=== PATIENT | female | born 1990 | race Caucasian/White ===

== ENCOUNTER → 2016-05-09 | Outpatient (CLI) | payer MEDICAID, OTHER ==
[~2016-05-09] MED LIST: ULTR50TA5 PO
== END ==
LOC: CDED 14:46
PROVIDERS: ATTEND Obstetrics & Gynecology
DX: O24.419 Gestational diabetes mellitus in pregnancy, unspecified control (principal)
CPT/HCPCS: 97802

== ENCOUNTER 2016-07-30 21:08 | Inpatient (IN) | payer MEDICAID ==
[2016-07-30 21:45] VITALS: TEMP 98.5
[2016-07-30] MEDS ORDERED: LIDOCAINE HCL 1% 50 ML VIAL INFIL PRN (22:00)
[2016-07-30] MEDS ORDERED: OXYTOCIN 30 UNITS 500ML PREMIX IV ONE (22:00)
[2016-07-30] MEDS ORDERED: NS 1000 ML OTHER PRN (22:00)
[2016-07-30] MEDS ORDERED: MINERAL OIL 10 ML VIAL TOPICAL PRN (22:00)
[2016-07-30] MEDS ORDERED: DINOPROSTONE 10 MG INSERT-LEAVE FOR 12 HOURS VAGINAL ONE (22:00)
[2016-07-30 22:15] VITALS: RESP 18
[2016-07-30] MEDS ORDERED: NS 1000 ML IV PRN (22:15)
[2016-07-30] MEDS ORDERED: ONDANSETRON HCL 4 MG/2 ML VIAL IV PRN (22:15)
[2016-07-30] MEDS ORDERED: NS 500 ML BOLUS IV PRN (22:15)
[2016-07-30] MEDS ORDERED: CITRIC ACID-SODIUM CITRATE LIQ 30 ML UDC PO SCH (22:15)
[2016-07-30] MEDS ORDERED: LIDOCAINE HCL 1% 50 ML VIAL I-DERMAL PRN (22:15)
[2016-07-30] MEDS ORDERED: LACTATED RINGER'S 1000 ML BOLUS IV PRN (22:15)
[2016-07-30 22:57] LABS: AUTOMATED NEUTROPHIL # 4.9 TH/MM3 (1.8-7.7); BASOPHIL % 0.2 % (0.0-2.0); EOSINOPHIL # 0.1 TH/MM3 (0-0.4); EOSINOPHIL % 0.8 % (0.0-4.0); HEMATOCRIT 34.6 % (35.0-46.0); HEMO FLAGS DIFF FINAL; LYMPH % 20.6 % (9.0-44.0); LYMPHOCYTE # 1.5 TH/MM3 (1.0-4.8); MEAN CELL VOLUME 86.4 FL (80.0-100.0); MEAN CORPUSCULAR HEMOGLOBIN 30.5 PG (27.0-34.0); MEAN CORPUSCULAR HGB CONC 35.3 % (32.0-36.0); MONO % 8.5 % (0.0-8.0); NEUT % 69.9 % (16.0-70.0); PLATELET COUNT 147 TH/MM3 (150-450); RED BLOOD COUNT 4.01 MIL/MM3 (4.00-5.30); RED CELL DISTRIBUTION WIDTH 13.5 % (11.6-17.2); WHITE BLOOD COUNT 7.1 TH/MM3 (4.0-11.0)
[2016-07-30 23:15] VITALS: RESP 18
[2016-07-30 23:30] LABS: BACTERIA, URINE RARE /hpf; BLOOD, URINE MOD (NEG); GLUCOSE,URINE NEG (NEG); KETONE, URINE NEG (NEG); MUCUS URINE FEW /lpf (OCC); NITRITE,URINE NEG (NEG); SQUAMOUS EPITHELIAL CELL URINE 9 /hpf (0-5); TRANSITIONAL EPI CELLS, URINE <1 /hpf; URINE COLOR YELLOW (YELLW/STRAW)
[2016-07-30 23:31] LABS: COMMENT (UR) CULTURE INDICATED; CULTURE IF INDICATED CULTURE INDICATED
[2016-07-31] VITALS (154 sets, daily range): BP systolic 104–134; BP diastolic 58–81; PULSE 76–106; RESP 16–20; TEMP 97.8–98.7; O2SAT 96–100
--- NOTE | 2016-07-31 07:36 | PD.LABORPN ---
Subjective Subjective feeling comfortable, mild cramping, not consistent; pain 2/10 low pelvis. Objective Vital Signs Vital Signs Date Time Temp Pulse Resp B/P Pulse Ox O2 Delivery O2 Flow Rate FiO2 07/31/16 07:28 80 121/74 07/31/16 07:26 97.9 18 07/31/16 06:36 18 07/31/16 06:00 18 07/31/16 03:45 76 132/73 07/31/16 03:45 98.6 07/31/16 03:45 18 07/31/16 02:30 18 07/31/16 00:30 18 Objective Pelvic Exam: SVE deferred, cervidil placed 10P last evening, to remain x 12h Membranes: [intact] Uterine Contractions: [irritability q6 min] FHT's: Category: [I] Baseline: [130s] Reactive: [y] Variability: [y] Decels: [n] Assessment/Plan Problem List: (1) Decreased movement affecting management of in third trimester (2) 40 weeks gestation of (3) Gestational diabetes mellitus (GDM) affecting Assessment and Plan 26 yo G1 with EDC 07/29/[address] Hugo for IOL due to decreased FM, GDM, past due 1) IOL: cervidil placed overnight at 10p, will plan removal at 10A today; pt very painful with vaginal exams, will have to evaluate ability to place addt'l induction medications; pt aware likely >24h induction/labor due to unfavorable Lopez score 2) GDM: diet controlled; while not yet in active labor will allow diabetic diet & plan fasting & 2h PP BS checks; q4h checks once on clears 3) status: vertex, female, EFW >8#, Cat I tracing currently Stephy Jordan MD July 31, 2016 07:36
--- NOTE | 2016-07-31 09:18 | HHI.HP ---
History & Physical H&P H&P, late entry HPI Chief Complaint cramping and decreased movement, desire iol Date Seen: July 30, 2016 Time Seen: 15:00 Travel History International Travel<30 Days: No Contact w/Intl Traveler<30Days: No Known Affected Area: No History of Present Illness HPI Pt is a 26 y/o G1 with IUP at 40.2 wks by first trimester presents with c/o decreased FM and cramping. She was evaluated in triage, July 30 for cramping and decreased movement. she had reassuring tracing at that time and was not found to be in labor. Pt denies contractions, vb, lof. +FM, but decreased . PNC c/b GDM with good control on diet, chronic back pain, obesity. Pt was scheduled for iol last week; but after appt discussed with and declined admission. Desire induction now. 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[place], has been here for 2 years Allergies-Medications Allergies-Medications (Allergen,Severity, Reaction): Coded Allergies: No Known Allergies (Unverified , 07/30/16) Narrative Medication PNV ROS Review of Systems General / Constitutional: No: Fever, Weight Gain, Weight Loss, Chills, Other Eyes: No: Diploplia, Blurred Vision, Visual changes, Pain, Photophobia, Other HENT: No: Headaches, Vertigo, Dental Difficulties, Lightheadedness, Other Cardiovascular: No: Irregular Rhythm, Chest Pain or Discomfort, Palpitations, Tachycardia, Syncope, Varicosities, Edema, Cyanosis, Other Respiratory: No: Cough, Short of Breath, Wheezing, Other Gastrointestinal: No: Nausea, Vomiting, Diarrhea, Abdominal Pain, Hematemesis, Hematochezia, Constipation, Changes in Bowel Habits, Indigestion, Loss of Appetite, Other Genitourinary: No: Urgency, Frequency, Dysuria, Nocturia, Hematuria, Decreased Urinary Output, Oliguria, Hesitancy, Dribbling, Incontinence, Pelvic Pain, Dyspareunia, Discharge, Menorrhagia, Vaginal Bleeding, Other Musculoskeletal: No: Limited ROM, Weakness, Cramping, Edema, Pain, Other Skin: No Rash, No Itching, No Dryness, No Lumps, No Change in Pigmentation, No Change in Nails, No Alopecia, No Lesions, No Breast Lumps, No Breast Tenderness , No Breast Swelling, No Other Neurologic: No: Weakness, Dizziness, Syncope, Focal Abnormalities, Coordination Problem, Headache, Slurred Speech, Seizures, Other Psychiatric: No: Anxiety, Depression, Suicidal Ideations, Disorder of Thought, Mood Disorder, Substance Abuse, Homicidal Ideation, Other Endocrine: No: Heat Intolerance, Cold Intolerance, Polydipsia, Polyuria, Other Hematologic/Lymphatic: No Easy Bruising, No Lymph Node Enlargement, No Other Physical Exam Physical Exam Vital Signs Date Time Temp Pulse Resp B/P Pulse Ox O2 Delivery O2 Flow Rate FiO2 07/31/16 08:30 83 99 07/31/16 08:25 80 99 07/31/16 08:20 83 99 07/31/16 08:15 91 99 07/31/16 08:10 82 99 07/31/16 07:28 80 121/74 07/31/16 07:26 97.9 18 07/31/16 06:36 18 07/31/16 06:00 18 07/31/16 03:45 76 132/73 07/31/16 03:45 98.6 07/31/16 03:45 18 07/31/16 02:30 18 07/31/16 00:30 18 07/30/16 23:15 18 07/30/16 22:15 18 07/30/16 21:45 98.5 Narrative GENERAL: Well-nourished, well-developed patient. SKIN: Warm and dry. HEAD: Normocephalic and atraumatic. EYES: No scleral icterus. No injection or drainage. ENT: No nasal drainage noted. Mucous membranes pink. Airway patent. NECK: Supple, trachea midline. No JVD. CARDIOVASCULAR: Regular rate and rhythm without murmurs, gallops, or rubs. RESPIRATORY: Breath sounds equal bilaterally. No accessory muscle use. ABDOMEN/GI: Abdomen soft, non-tender, bowel sounds present, no rebound, no guarding Gravid GENITOURINARY: External Genitalia: intact and normal in appearance BUS glands: [wnl] Cervix: posterior Dilatation: 1 Effacement: 50 Station: -3 Presentation: [facility] Membranes: intact Uterine Contractions: rare, patient not feeling FHT's: Category: 1 Baseline: 150s Reactive: yes Variability: mod Decels: no EXTREMITIES: No cyanosis or edema. BACK: Nontender without obvious deformity. No CVA tenderness. NEUROLOGICAL: Awake and alert. Motor and sensory grossly within normal limits. Five out of 5 muscle strength in all muscle groups. Normal speech. A/P: 26 yo G1 with iup at 40w2d admitted last night for iol for term with decreased fm 1) IOL- started last night with cervidil, inserted at 10;30pm; will keep in for 12 hours. Pt aware that induction can be a long process, 24 to 36 hours long, and may need a cd if labor progression is not normal. 2) GDM- diet controlled 3) Elevated bmi- last growht u/s at 35 wk, efw 66%ile, 5 lb 15 oz 4) Fetus cephalic approx 8-8.5 lb Marei Hugo MD July 31, 2016 09:18
[2016-07-31] MEDS ORDERED: PILL SPLITTER OTHER PRN (10:45)
[2016-07-31] MEDS: MISOPROSTOL 100 MCG TAB PO SCH ×2 (10:46→14:42)
[2016-07-31] MEDS: LACTATED RINGER'S 1000 ML IV SCH ×3 (14:15→20:53)
[2016-07-31] MEDS ORDERED: OXYTOCIN 30 UNITS-500ML PREMIX 500 ML IV SCH (21:00)
[2016-08-01] VITALS (106 sets, daily range): BP systolic 94–145; BP diastolic 47–92; PULSE 67–99; RESP 16–20; TEMP 97.6–98.5; O2SAT 96–98
[2016-08-01] MEDS: LACTATED RINGER'S 1000 ML IV SCH (01:34)
[2016-08-01] MEDS ORDERED: fentaNYL 2MCG-BUPIV 0.125% INJ 100 ML ONE (08:15)
[2016-08-01] MEDS ORDERED: ePHEDrine/NS 25 MG/5 ML SYR ONE (08:15)
[2016-08-01] MEDS ORDERED: ePHEDrine/NS 25 MG/5 ML SYR IV PRN (10:30)
[2016-08-01] MEDS ORDERED: DO NOT ADMINISTER ANTICOAGULANTS PRN (10:30)
[2016-08-01] MEDS ORDERED: NO SYSTEM NARCOTICS PRN (10:30)
--- NOTE | 2016-08-01 11:45 | PD.LABORPN ---
Subjective Subjective Patient is comfortable with epidural, pitocin is at 18 units, cervix 70/4+/-3 Objective Vital Signs Vital Signs Date Time Temp Pulse Resp B/P Pulse Ox O2 Delivery O2 Flow Rate FiO2 08/01/16 11:30 68 98/56 08/01/16 11:10 97.9 68 08/01/16 11:05 79 08/01/16 11:03 18 08/01/16 11:00 75 116/75 08/01/16 11:00 80 08/01/16 10:55 74 08/01/16 10:50 75 08/01/16 10:45 72 116/67 08/01/16 10:45 74 08/01/16 10:40 75 08/01/16 10:35 73 08/01/16 10:30 74 08/01/16 10:30 70 109/66 08/01/16 10:25 81 08/01/16 10:20 73 08/01/16 10:15 72 08/01/16 10:15 71 115/69 08/01/16 10:10 72 08/01/16 10:05 74 08/01/16 10:00 75 111/71 08/01/16 10:00 72 08/01/16 09:55 71 08/01/16 09:50 72 08/01/16 09:46 77 113/65 08/01/16 09:45 74 08/01/16 09:35 76 08/01/16 09:30 76 119/71 08/01/16 09:30 74 08/01/16 09:25 81 08/01/16 09:20 74 08/01/16 09:20 80 111/67 08/01/16 09:17 18 08/01/16 09:15 90 08/01/16 09:15 75 99/71 08/01/16 09:10 90 08/01/16 09:10 88 108/70 08/01/16 09:05 83 08/01/16 09:05 92 119/70 08/01/16 09:00 88 08/01/16 09:00 89 18 121/77 08/01/16 08:55 81 08/01/16 08:55 74 112/74 08/01/16 08:52 77 128/73 08/01/16 08:50 83 08/01/16 08:48 88 135/72 08/01/16 08:45 99 08/01/16 08:45 97 144/92 08/01/16 08:40 83 08/01/16 08:38 94 145/90 08/01/16 08:35 96 08/01/16 08:23 72 115/47 08/01/16 07:45 18 08/01/16 07:45 67 128/71 08/01/16 07:45 97.7 08/01/16 06:43 20 08/01/16 06:39 76 130/80 08/01/16 06:00 98.4 08/01/16 05:47 20 08/01/16 05:46 76 120/68 08/01/16 03:54 16 Objective Pelvic Exam: Cervix: SOFT Dilatation: 4-5 Effacement: 70 Station: -3 Presentation: [facility] Membranes: AROM Uterine Contractions: q 3 FHT's: Category: 1 Baseline: 140 Reactive: [-] Variability: MODERATE Decels: NO Assessment/Plan Problem List: (1) Decreased movement affecting management of in third trimester (2) 40 weeks gestation of (3) Gestational diabetes mellitus (GDM) affecting Assessment and Plan IUPC placed, minimal change, concerning for arrest of decent, remains at -3. will increase pitocin to 20 Max., FHR CAT 1 Preet Velasquez MD August 01, 2016 11:45
[2016-08-01] MEDS: fentaNYL 2MCG-BUPIV 0.125% 100 ML EPIDURAL SCH ×2 (13:49→18:57)
[2016-08-01] MEDS ORDERED: ceFAZolin 2 GM PREMIX 50 ML IV SCH (15:30)
[2016-08-01] MEDS ORDERED: CITRIC ACID-SODIUM CITRATE LIQ 30 ML UDC PO SCH (15:30)
[2016-08-01] MEDS ORDERED: LACTATED RINGER'S 1000 ML IV ONE (15:30)
[2016-08-01] MEDS ORDERED: LACTATED RINGER'S 1000 ML IV SCH (16:00)
[2016-08-01] MEDS ORDERED: OXYTOCIN 10 UNIT/ML AMP ONE (16:57)
[2016-08-01] MEDS ORDERED: ACETAMINOPHEN 1000 MG/100 ML VIAL IV ONE (17:47)
[2016-08-01] MEDS ORDERED: EPIDURAL-DIPHENHYDRAMINE HCL 50 MG CAP PO PRN (18:06)
[2016-08-01] MEDS ORDERED: EPIDURAL-NO SYSTEMIC NARCOTICS PRN (18:06)
[2016-08-01] MEDS ORDERED: EPIDURAL-DO NOT ADMINISTER ANTICOAGULANTS PRN (18:06)
[2016-08-01] MEDS ORDERED: EPIDURAL-NALOXONE HCL 0.4 MG/ML AMP IV PRN (18:06)
[2016-08-01] MEDS ORDERED: EPIDURAL-DIPHENHYDRAMINE HCL 50 MG/ML VIAL IV PUSH PRN (18:06)
--- NOTE | 2016-08-01 18:25 | PD.OB.DELI ---
Procedure Note Section Procedure Performed by Preet Velasquez Procedure: Primary Low Transverse Sec Indication for delivery: malposition Informed consent obtained: For anesthesia, For procedure Confirmed correct: Patient, Procedure, Site, Time-out taken Anesthesia: Epidural Medication prior to procedure: As documented in eMAR Monitoring during procedure: Blood pressure monitoring, awake overnight monitor, doppler, Pulse oximetry Urinary catheter: Inserted using sterile technique, To dependent drainage Sterile preparation: Duraprep, With 2% chlorexidine (Hibiclens), With drapes to expose affected area Position: Supine with wedge to right side, Supine with safety belt applied Operative Features Skin Incision: Pfannenstiel Uterine Incision: Low transverse w/knife / scissors Membranes Ruptured: Previously Presentation: Occiput posterior Delivery of : Assisted (kiwi vacuum x1 pull,no pop off) Infant: Female One Minute : 8 Five Minute : 9 Weight: 8 # 11oz Status of : Viable, Cord blood, Nursery present Placenta delivered: Intact Medications: Antibiotics, Oxytocin Estimated blood loss: 650cc Procedure tolerated: Well Maternal Condition: Stable Condition: Stable Preet Velasquez MD August 01, 2016 18:25
[2016-08-01] MEDS ORDERED: MORPHINE SULFATE PF 5 MG/10 ML VIAL ONE (18:27)
[2016-08-01] MEDS ORDERED: ACETAMINOPHEN 325 MG TAB PO PRN (18:30)
[2016-08-01] MEDS ORDERED: SIMETHICONE 80 MG CHEWABLE TAB PO PRN (18:30)
[2016-08-01] MEDS ORDERED: OXYTOCIN 30 UNITS-500ML PREMIX 500 ML IV ONE (18:30)
[2016-08-01] MEDS ORDERED: ONDANSETRON HCL 4 MG/2 ML VIAL IV PUSH PRN (18:30)
[2016-08-01] MEDS ORDERED: KETOROLAC TROMETHAMINE 60 MG/2 ML (IM) VIAL IM PRN (18:30)
[2016-08-01] MEDS ORDERED: oxyCODONE/ACETAMINOPHEN 5 MG/325 MG TAB PO PRN (18:30)
[2016-08-01] MEDS ORDERED: DOCUSATE SODIUM 50 MG/SENNA 8.6 MG TAB PO PRN (18:30)
[2016-08-01] MEDS ORDERED: SODIUM CHLORIDE 0.9% FLUSH 10 ML FLUSH IV FLUSH PRN (18:30)
[2016-08-01] MEDS ORDERED: SODIUM CHLORIDE 0.9% FLUSH 10 ML FLUSH IV FLUSH SCH (21:00)
[2016-08-01] MEDS ORDERED: LACTATED RINGER'S 1000 ML INJ 1,000 ML IV SCH (23:21)
[2016-08-02 04:00] VITALS: BP 118/69; PULSE 16; PULSE 78; TEMP 98.3; O2SAT 98
[2016-08-02 04:30] VITALS: RESP 16
[2016-08-02] MEDS ORDERED: OXYTOCIN 30 UNITS-500ML PREMIX 500 ML IV PRN (04:30)
[2016-08-02] MEDS: IBUPROFEN 600 MG TAB PO PRN (06:36)
--- NOTE | 2016-08-02 07:34 | MP ---
cc: PREET GARCIA DATE OF SURGERY 08/01/2016 PREOPERATIVE DIAGNOSIS 40-week intrauterine gestation with failure to progress, arrest of descent, history of gestational diabetes. PROCEDURE Primary low transverse section delivery of viable female infant. POSTOPERATIVE DIAGNOSIS 40-week intrauterine gestation with failure to progress, arrest of descent, history of gestational diabetes. SURGEON Preet Garcia MD ANESTHESIA Epidural ESTIMATED BLOOD LOSS 650 cc. DRAINS Rosenbaum to gravity OPERATIVE FINDINGS Female was delivered with the aid of a kiwi extractor x one pull. The baby was a left occiput posterior nuchal cord x1 which was loose, clear fluid, intact placenta, three-vessel cord. 's were a 8 at one minute, 9 at five. INDICATIONS FOR PROCEDURE The patient was brought in for elective induction due to concerns for well-being. The patient progressed after artificial rupture of membranes to 5 cm and despite adequate uterine contractions with Pitocin augmentation, the patient failed to progress beyond 5 cm at -3 station. A section was elected. The patient received Ancef 2 grams prophylactically. PROCEDURE The patient was taken to the operating room in stable condition, underwent reinforcement of her epidural with good result. She was prepped and draped. The Rosenbaum was previously inserted by sterile technique and she had sequential's placed on the lower extremities for VTE prophylaxis. After she was prepped and draped, a time-out was conducted agreed by all present in the room. The patient had excellent pain control with her anesthesia. A Pfannenstiel incision was used. It was carried just above the pubic symphysis in a slightly elliptical fashion, carried through the skin down through the subcutaneous layer to identify the fascia which was scored in the midline and extended laterally by sharp dissection cauterizing any active bleeding along the way with the Bovie. The rectus was dissected from the rectus muscle. The rectus muscle was in the midline. The peritoneum was identified and opened sharply. A bladder blade was placed over the pubic symphysis. A transverse incision was made in the lower uterine segment with clear fluid. The was delivered with the aid of a Kiwi after bringing the vertex through the incision for manipulation. The nuchal cord was easily reduced and then the infant was delivered in total with good tone and cry. Cord bloods obtained for typing. The placenta was removed without complication. The had been passed off to the nursery staff present. The uterus was explored. There is no retained tissue. It was then closed with a double layer first layer was a running locking suture of 0 Monocryl followed by a second imbricating suture of 0 Monocryl with good result. The uterus was firm. Hemostasis was confirmed. The anatomy was examined and normal. The pelvis was then irrigated and any active bleeding was cauterized and the free fluid and blood was removed without difficulty. Full count was made and correct. The peritoneal layer was then closed with a running suture of 2-0 Monocryl followed by reapproximation of the muscle bellies with a loose interrupted suture of 2-0 Monocryl. The fascia was then closed with 0 Vicryl in a simple running fashion with good result. Subcutaneous layer was irrigated. No active bleeding was noted. The subcutaneous space was reapproximated with a running stitch of 2-0 Monocryl followed by the use of yaz on the skin. Dressing was applied. The final count was correct. The patient was stable. Infant was doing well in the regular nursery. MD MARCELO Worthy/CLAIRE /6:29 PM /7:21 AM
[2016-08-02 08:10] VITALS: BP 111/72; PULSE 68; RESP 18; TEMP 97.9
--- NOTE | 2016-08-02 08:23 | HHI.OB ---
Subjective Post Operative Day: 1 Remarks gould just removed, pain controlled on meds. Passing flatus Objective Vitals/I&O Vital Signs Date Time Temp Pulse Resp B/P Pulse Ox O2 Delivery O2 Flow Rate FiO2 08/02/16 04:30 16 08/02/16 04:00 98.3 16 118/69 98 08/02/16 04:00 78 08/01/16 23:30 98.5 68 18 122/74 08/01/16 20:15 102/60 08/01/16 20:15 98.1 76 18 08/01/16 20:10 98.1 08/01/16 20:10 76 18 102/60 08/01/16 19:30 74 18 104/61 08/01/16 19:30 97 08/01/16 19:18 18 96 08/01/16 19:18 74 98/53 08/01/16 19:10 18 96 08/01/16 19:10 73 107/56 08/01/16 18:45 104/55 08/01/16 18:45 81 18 98 08/01/16 18:30 97.9 80 18 94/53 98 08/01/16 17:00 84 124/78 08/01/16 16:42 18 08/01/16 16:30 78 132/74 08/01/16 16:00 81 128/74 08/01/16 15:45 98.1 08/01/16 15:42 18 08/01/16 15:30 86 132/80 08/01/16 15:20 78 08/01/16 15:15 79 08/01/16 15:00 79 08/01/16 15:00 79 133/74 08/01/16 14:45 18 08/01/16 14:40 77 08/01/16 14:35 72 08/01/16 14:30 76 08/01/16 14:30 72 118/59 08/01/16 14:11 82 108/60 08/01/16 14:10 75 08/01/16 14:05 70 08/01/16 14:00 75 08/01/16 14:00 74 114/57 08/01/16 13:45 97.6 08/01/16 13:45 17 08/01/16 13:40 84 08/01/16 13:35 85 08/01/16 13:30 86 08/01/16 13:30 84 129/86 08/01/16 13:25 84 08/01/16 13:24 98.1 08/01/16 13:20 81 08/01/16 13:18 18 08/01/16 13:15 84 08/01/16 13:10 81 08/01/16 13:05 81 08/01/16 13:00 82 08/01/16 13:00 84 121/79 08/01/16 12:31 18 08/01/16 12:30 88 125/77 08/01/16 12:30 82 08/01/16 12:25 81 08/01/16 12:20 82 08/01/16 12:15 82 08/01/16 12:10 80 08/01/16 12:05 71 08/01/16 12:00 80 118/74 08/01/16 12:00 76 08/01/16 11:55 77 08/01/16 11:50 75 08/01/16 11:45 78 08/01/16 11:42 18 08/01/16 11:40 77 116/76 08/01/16 11:40 72 08/01/16 11:35 87 08/01/16 11:30 72 08/01/16 11:30 68 98/56 08/01/16 11:25 67 08/01/16 11:20 69 08/01/16 11:15 69 08/01/16 11:10 97.9 68 08/01/16 11:05 79 08/01/16 11:03 18 08/01/16 11:00 75 116/75 08/01/16 11:00 80 08/01/16 10:55 74 08/01/16 10:50 75 08/01/16 10:45 72 116/67 08/01/16 10:45 74 08/01/16 10:40 75 08/01/16 10:35 73 08/01/16 10:30 74 08/01/16 10:30 70 109/66 08/01/16 10:25 81 08/01/16 10:20 73 08/01/16 10:15 72 08/01/16 10:15 71 115/69 08/01/16 10:10 72 08/01/16 10:05 74 08/01/16 10:00 75 111/71 08/01/16 10:00 72 08/01/16 09:55 71 08/01/16 09:50 72 08/01/16 09:46 77 113/65 08/01/16 09:45 74 08/01/16 09:35 76 08/01/16 09:30 76 119/71 08/01/16 09:30 74 08/01/16 09:25 81 08/01/16 09:20 74 08/01/16 09:20 80 111/67 08/01/16 09:17 18 08/01/16 09:15 90 08/01/16 09:15 75 99/71 08/01/16 09:10 90 08/01/16 09:10 88 108/70 08/01/16 09:05 83 08/01/16 09:05 92 119/70 08/01/16 09:00 88 08/01/16 09:00 89 18 121/77 08/01/16 08:55 81 08/01/16 08:55 74 112/74 08/01/16 08:52 77 128/73 08/01/16 08:50 83 08/01/16 08:48 88 135/72 08/01/16 08:45 99 08/01/16 08:45 97 144/92 08/01/16 08:40 83 08/01/16 08:38 94 145/90 08/01/16 08:35 96 08/01/16 08:23 72 115/47 Result Diagram: 07/30/16 1267 Objective Remarks GENERAL: Well-nourished, well-developed patient. CARDIOVASCULAR: Regular rate and rhythm without murmurs, gallops, or rubs. RESPIRATORY: Breath sounds equal bilaterally. No accessory muscle use. ABDOMEN/GI: Abdomen soft, non-tender, bowel sounds present. Incision dressing in place Fundus: Firm, non-tender at umbilicus. GENITOURINARY: Light to moderate bleeding. EXTREMITIES: No cyanosis or edema, non-tender, without signs of DVT. Medications and IVs Current Medications Medications (Trade) Dose Ordered Sig/Reinaldo Route Start Time Stop Time Status Last Admin Sodium Chloride 1,000 ml @ 0 mls/hr UNSCH PRN OTHER 07/30/16 22:00 Lactated Ringer's 1,000 ml @ 125 mls/hr Q8H IV 07/30/16 22:15 08/01/16 01:34 Lactated Ringer's 1,000 ml @ 3,000 mls/hr BOLUS PRN IV 07/30/16 22:15 Sodium Chloride 500 ml @ 1,000 mls/hr BOLUS PRN IV 07/30/16 22:15 (NS 1000 ml Inj) 1,000 ml @ 100 mls/hr Q10H PRN IV 07/30/16 22:15 (Zofran Inj) 4 mg Q6H PRN IV 07/30/16 22:15 (fentaNYL INJ) 50 mcg Q1H PRN IV PUSH 07/30/16 22:00 07/31/16 10:46 (fentaNYL INJ) 100 mcg Q1H PRN IV PUSH 07/30/16 22:00 08/01/16 07:09 (Muri-Lube Oil) 10 ml UNSCH PRN TOPICAL 07/30/16 22:00 Miscellaneous 1 ea 1 ea UNSCH PRN OTHER 07/31/16 10:45 (Pitocin 30 Units-NS 500 ml Premix) 500 ml @ 0 mls/hr TITRATE IV 07/31/16 21:00 07/31/16 20:52 Miscellaneous Information No systemic narcotics to be given except... UNSCH PRN .XX 08/01/16 10:30 08/02/16 10:29 Miscellaneous Information DO NOT ADMINISTER ANY ANTICOAGUL... UNSCH PRN .XX 08/01/16 10:30 08/02/16 10:29 (fentaNYL 2MCG-BUPIV 0.125% INJ) 100 ml @ 0 mls/hr TITRATE EPIDURAL 08/01/16 10:30 08/01/16 13:49 Ephedrine Sulfate 10 mg 10 mg UNSCH PRN IV 08/01/16 10:30 08/02/16 10:29 Lactated Ringer's 1,000 ml @ 150 mls/hr Q6H40M IV 08/01/16 16:00 (Lr 1000 ml Inj) 1,000 ml @ 100 mls/hr Q10H IV 08/01/16 23:21 08/02/16 19:20 08/02/16 01:52 (NS Flush) 2 ml BID IV FLUSH 08/01/16 21:00 (NS Flush) 2 ml UNSCH PRN IV FLUSH 08/01/16 18:30 (Mylicon Chew) 80 mg QID PRN PO 08/01/16 18:30 (Tylenol) 650 mg Q6H PRN PO 08/01/16 18:30 (Motrin) 600 mg Q6H PRN PO 08/01/16 18:30 08/02/16 06:36 (Toradol Inj) 30 mg Q6H PRN IM 08/01/16 18:30 08/02/16 18:29 (Percocet 5-325 Mg) 1 tab Q4H PRN PO 08/01/16 18:30 08/02/16 06:36 Oxycodone/ Acetaminophen 2 tab 2 tab Q4H PRN PO 08/01/16 18:30 (Ancef Inj/NS Inj) 100 ml @ 200 mls/hr Q8H IV 08/02/16 01:00 08/02/16 09:29 08/02/16 01:52 (Belinda-Colace) 2 tab Q12H PRN PO 08/01/16 18:30 (M-M-R Ii Inj) 0.5 ml ONCE ONCE SQ 08/02/16 16:00 08/02/16 16:01 (Boostrix Inj) 0.5 ml ONCE ONCE IM 08/02/16 16:00 08/02/16 16:01 (Zofran Inj) 4 mg Q6H PRN IV PUSH 08/01/16 18:30 08/02/16 00:03 Miscellaneous Information NO SYSTEMIC NARCOTICS TO BE GIVEN FO... UNSCH PRN .XX 08/01/16 18:06 08/02/16 18:05 (Narcan Inj) 0.4 mg UNSCH PRN IV 08/01/16 18:06 08/02/16 18:05 (Benadryl Inj) 25 mg Q6H PRN IV PUSH 08/01/16 18:06 08/02/16 18:05 (Benadryl) 50 mg Q6H PRN PO 08/01/16 18:06 08/02/16 18:05 Miscellaneous Information ALL NURSING DEPARTMENTS UNSCH PRN .XX 08/01/16 18:06 08/02/16 18:05 Assessment/Plan Problem List: (1) Decreased movement affecting management of in third trimester (2) 40 weeks gestation of (3) Gestational diabetes mellitus (GDM) affecting Assessment and Plan POD 1 s/p CD for arrest of dilation, OP presentation - cont routine supportive care, d/c gould, encourage ambulation Marie Hugo MD August 02, 2016 08:23
[2016-08-02] MEDS ORDERED: MEASLES, MUMPS, RUBELLA VACCINE 0.5 ML VIAL SQ ONE (16:00)
[2016-08-02] MEDS ORDERED: DIPHTH/TETANUS/ACEL PERTUSSIS (BOOSTER) 0.5 ML VIAL/PFS IM ONE (16:00)
[2016-08-02] MEDS: oxyCODONE/ACETAMINOPHEN 5 MG/325 MG TAB PO PRN (23:37)
[2016-08-03] MEDS: IBUPROFEN 600 MG TAB PO PRN ×3 (00:39→20:38)
[2016-08-03 00:45] VITALS: BP 118/74; PULSE 88; RESP 20; TEMP 98.3
[2016-08-03] MEDS: oxyCODONE/ACETAMINOPHEN 5 MG/325 MG TAB PO PRN ×3 (04:20→12:20)
--- NOTE | 2016-08-03 08:16 | HHI.OB ---
Subjective Post Operative Day: 2 Remarks Sitting up holding baby states in significant pain and percocet not adequate will be bottling does not want to nurse upset with yaz--many questions answered Objective Vitals/I&O Vital Signs Date Time Temp Pulse Resp B/P Pulse Ox O2 Delivery O2 Flow Rate FiO2 08/03/16 00:45 98.3 88 20 118/74 Result Diagram: 07/30/16 3984 Objective Remarks GENERAL: Well-nourished, well-developed patient. CARDIOVASCULAR: Regular rate and rhythm without murmurs, gallops, or rubs. RESPIRATORY: Breath sounds equal bilaterally. No accessory muscle use. ABDOMEN/GI: Abdomen soft, non-tender, bowel sounds present. Incision dressing in place Fundus: Firm, non-tender at umbilicus. GENITOURINARY: Light to moderate bleeding. EXTREMITIES: No cyanosis or edema, non-tender, without signs of DVT. Medications and IVs Current Medications Medications (Trade) Dose Ordered Sig/Reinaldo Route Start Time Stop Time Status Last Admin Sodium Chloride 1,000 ml @ 0 mls/hr UNSCH PRN OTHER 07/30/16 22:00 Lactated Ringer's 1,000 ml @ 125 mls/hr Q8H IV 07/30/16 22:15 08/01/16 01:34 Lactated Ringer's 1,000 ml @ 3,000 mls/hr BOLUS PRN IV 07/30/16 22:15 Sodium Chloride 500 ml @ 1,000 mls/hr BOLUS PRN IV 07/30/16 22:15 (NS 1000 ml Inj) 1,000 ml @ 100 mls/hr Q10H PRN IV 07/30/16 22:15 (Zofran Inj) 4 mg Q6H PRN IV 07/30/16 22:15 (fentaNYL INJ) 50 mcg Q1H PRN IV PUSH 07/30/16 22:00 07/31/16 10:46 (fentaNYL INJ) 100 mcg Q1H PRN IV PUSH 07/30/16 22:00 08/01/16 07:09 (Muri-Lube Oil) 10 ml UNSCH PRN TOPICAL 07/30/16 22:00 Miscellaneous 1 ea 1 ea UNSCH PRN OTHER 07/31/16 10:45 Oxytocin 500 ml @ 0 mls/hr TITRATE IV 07/31/16 21:00 07/31/16 20:52 Fentanyl/ Bupivacaine HCl 100 ml @ 0 mls/hr TITRATE EPIDURAL 08/01/16 10:30 08/01/16 13:49 (Lr 1000 ml Inj) 1,000 ml @ 150 mls/hr Q6H40M IV 08/01/16 16:00 (NS Flush) 2 ml BID IV FLUSH 08/01/16 21:00 (NS Flush) 2 ml UNSCH PRN IV FLUSH 08/01/16 18:30 (Mylicon Chew) 80 mg QID PRN PO 08/01/16 18:30 (Tylenol) 650 mg Q6H PRN PO 08/01/16 18:30 (Motrin) 600 mg Q6H PRN PO 08/01/16 18:30 08/03/16 00:39 (Percocet 5-325 Mg) 1 tab Q4H PRN PO 08/01/16 18:30 08/02/16 06:36 (Percocet 5-325 Mg) 2 tab Q4H PRN PO 08/01/16 18:30 08/03/16 08:04 (Belinda-Colace) 2 tab Q12H PRN PO 08/01/16 18:30 (Zofran Inj) 4 mg Q6H PRN IV PUSH 08/01/16 18:30 08/02/16 00:03 Assessment/Plan Problem List: (1) Decreased movement affecting management of in third trimester (2) 40 weeks gestation of (3) Gestational diabetes mellitus (GDM) affecting Assessment and Plan POD 2 remove yaz in am toradol through IV now and then assess pain for discharge saturday Sammi Quintana MD August 03, 2016 08:15
[2016-08-03 08:25] VITALS: BP 134/90; PULSE 73; RESP 20; TEMP 97.5
[2016-08-03] MEDS ORDERED: KETOROLAC TROMETHAMINE 30 MG/ML (IVP) VIAL IV PUSH ONE (08:30)
[2016-08-03] MEDS ORDERED: traMADol HCL 50 MG TAB PO ONE (14:30)
[2016-08-03] MEDS ORDERED: traMADol HCL 50 MG TAB PO PRN (16:15)
[2016-08-03] MEDS: traMADol HCL 50 MG TAB PO PRN (20:37)
[2016-08-03 21:00] VITALS: BP 115/75; PULSE 74; RESP 18; TEMP 98; O2SAT 98
[2016-08-04] MEDS: traMADol HCL 50 MG TAB PO PRN ×2 (04:18→11:09)
[2016-08-04] MEDS: IBUPROFEN 600 MG TAB PO PRN ×2 (04:18→11:08)
[2016-08-04 09:00] VITALS: BP 123/75; PULSE 85; RESP 18; TEMP 98.2
--- NOTE | 2016-08-04 12:24 | HHI.OB ---
Subjective Post Operative Day: 3 Remarks ready for discharge bottling questions answered Objective Vitals/I&O Vital Signs Date Time Temp Pulse Resp B/P Pulse Ox O2 Delivery O2 Flow Rate FiO2 08/04/16 09:00 98.2 85 18 123/75 08/03/16 21:00 98.0 98 08/03/16 21:00 74 18 115/75 Objective Remarks GENERAL: Well-nourished, well-developed patient. CARDIOVASCULAR: Regular rate and rhythm without murmurs, gallops, or rubs. RESPIRATORY: Breath sounds equal bilaterally. No accessory muscle use. ABDOMEN/GI: Abdomen soft, non-tender, bowel sounds present. Incision dressing in place yaz removed and steri strips Fundus: Firm, non-tender at umbilicus. GENITOURINARY: Light to moderate bleeding. EXTREMITIES: No cyanosis or edema, non-tender, without signs of DVT. Medications and IVs Current Medications Medications (Trade) Dose Ordered Sig/Reinaldo Route Start Time Stop Time Status Last Admin Sodium Chloride 1,000 ml @ 0 mls/hr UNSCH PRN OTHER 07/30/16 22:00 Lactated Ringer's 1,000 ml @ 125 mls/hr Q8H IV 07/30/16 22:15 08/01/16 01:34 Lactated Ringer's 1,000 ml @ 3,000 mls/hr BOLUS PRN IV 07/30/16 22:15 Sodium Chloride 500 ml @ 1,000 mls/hr BOLUS PRN IV 07/30/16 22:15 (NS 1000 ml Inj) 1,000 ml @ 100 mls/hr Q10H PRN IV 07/30/16 22:15 (fentaNYL INJ) 50 mcg Q1H PRN IV PUSH 07/30/16 22:00 07/31/16 10:46 (fentaNYL INJ) 100 mcg Q1H PRN IV PUSH 07/30/16 22:00 08/01/16 07:09 (Muri-Lube Oil) 10 ml UNSCH PRN TOPICAL 07/30/16 22:00 Miscellaneous 1 ea 1 ea UNSCH PRN OTHER 07/31/16 10:45 Oxytocin 500 ml @ 0 mls/hr TITRATE IV 07/31/16 21:00 07/31/16 20:52 Fentanyl/ Bupivacaine HCl 100 ml @ 0 mls/hr TITRATE EPIDURAL 08/01/16 10:30 08/01/16 13:49 (Lr 1000 ml Inj) 1,000 ml @ 150 mls/hr Q6H40M IV 08/01/16 16:00 (NS Flush) 2 ml BID IV FLUSH 08/01/16 21:00 (NS Flush) 2 ml UNSCH PRN IV FLUSH 08/01/16 18:30 (Mylicon Chew) 80 mg QID PRN PO 08/01/16 18:30 (Tylenol) 650 mg Q6H PRN PO 08/01/16 18:30 (Motrin) 600 mg Q6H PRN PO 08/01/16 18:30 08/04/16 11:08 (Belinda-Colace) 2 tab Q12H PRN PO 08/01/16 18:30 (Zofran Inj) 4 mg Q6H PRN IV PUSH 08/01/16 18:30 08/02/16 00:03 (Ultram) 100 mg Q6H PRN PO 08/03/16 16:30 08/04/16 11:09 Assessment/Plan Problem List: (1) Decreased movement affecting management of in third trimester (2) 40 weeks gestation of (3) Gestational diabetes mellitus (GDM) affecting Assessment and Plan POD 3 yaz removed and care reviewed discharge home and RTO 1 week with Sammi Fong MD August 04, 2016 12:24
[2016-08-04] MEDS ORDERED: ULTR50TA5 PO (12:42)
== END 2016-08-04 15:55 | disposition home or self-care (01) | DRG 766 ==
LOC: H2EA 21:08 → H1EA 08-01 19:49
PROVIDERS: ADMIT Obstetrics & Gynecology; ATTEND Obstetrics & Gynecology
PROC: 3E0P7GC Introduction of Other Therapeutic Substance into Female Reproductive, Via Natural or Artificial Opening (ICD-10-PCS; 2016-07-30)
PROC: 10D00Z1 Extraction of Products of Conception, Low, Open Approach (ICD-10-PCS; principal; 2016-08-01)
DX: O36.8130 Decreased fetal movements, third trimester, not applicable or unspecified (principal); O24.420 Gestational diabetes mellitus in childbirth, diet controlled; O48.0 Post-term pregnancy; O62.1 Secondary uterine inertia; O99.214 Obesity complicating childbirth; Z37.0 Single live birth; Z3A.40 40 weeks gestation of pregnancy
CPT/HCPCS: 59025; 81001; 82948; 85025; 86900; 86901; 87086; 90707; 90715; 99284; J0131; J0690; J1885; J2274; J2405; J2590; J3010; J7120

== ENCOUNTER → 2016-07-30 | Emergency (ER) | payer MEDICAID ==
[2016-07-30 14:51] VITALS: BP 114/78; PULSE 98; RESP 22
[2016-07-30 14:52] VITALS: TEMP 98.1
[2016-07-30 15:12] VITALS: RESP 20
[2016-07-30 15:15] VITALS: PULSE 94; RESP 23
--- NOTE | 2016-07-30 15:23 | PD ---
HPI Chief Complaint cramping and decreased movement Date Seen: July 30, 2016 Time Seen: 15:00 Travel History International Travel<30 Days: No Contact w/Intl Traveler<30Days: No Known Affected Area: No History of Present Illness HPI Pt is a 26 y/o G1 with IUP at 40.1 wks by stated AMAN who presents with c/o decreased FM and cramping. Pt denies contractions, vb, lof. +FM, but decreased today Para: 0 : 1 History Past Medical History Medical History: Denies Significant Hx Past Surgical History Narrative Surgical vag cyst removal tonsillectomy Family History Family History: Negative Social History Alcohol Use: No Tobacco Use: No Substance Abuse: No Allergies-Medications (Allergen,Severity, Reaction): Coded Allergies: No Known Allergies (Unverified , 07/30/16) Narrative Medication PNV Review of Systems General / Constitutional: No: Fever, Weight Gain, Weight Loss, Chills, Other Eyes: No: Diploplia, Blurred Vision, Visual changes, Pain, Photophobia, Other HENT: No: Headaches, Vertigo, Dental Difficulties, Lightheadedness, Other Cardiovascular: No: Irregular Rhythm, Chest Pain or Discomfort, Palpitations, Tachycardia, Syncope, Varicosities, Edema, Cyanosis, Other Respiratory: No: Cough, Short of Breath, Wheezing, Other Gastrointestinal: No: Nausea, Vomiting, Diarrhea, Abdominal Pain, Hematemesis, Hematochezia, Constipation, Changes in Bowel Habits, Indigestion, Loss of Appetite, Other Genitourinary: No: Urgency, Frequency, Dysuria, Nocturia, Hematuria, Decreased Urinary Output, Oliguria, Hesitancy, Dribbling, Incontinence, Pelvic Pain, Dyspareunia, Discharge, Menorrhagia, Vaginal Bleeding, Other Musculoskeletal: No: Limited ROM, Weakness, Cramping, Edema, Pain, Other Skin: No Rash, No Itching, No Dryness, No Lumps, No Change in Pigmentation, No Change in Nails, No Alopecia, No Lesions, No Breast Lumps, No Breast Tenderness , No Breast Swelling, No Other Neurologic: No: Weakness, Dizziness, Syncope, Focal Abnormalities, Coordination Problem, Headache, Slurred Speech, Seizures, Other Psychiatric: No: Anxiety, Depression, Suicidal Ideations, Disorder of Thought, Mood Disorder, Substance Abuse, Homicidal Ideation, Other Endocrine: No: Heat Intolerance, Cold Intolerance, Polydipsia, Polyuria, Other Hematologic/Lymphatic: No Easy Bruising, No Lymph Node Enlargement, No Other Physical Exam Vital Signs Date Time Temp Pulse Resp B/P Pulse Ox O2 Delivery O2 Flow Rate FiO2 07/30/16 15:12 20 07/30/16 14:52 98.1 07/30/16 14:51 98 22 114/78 Narrative GENERAL: Well-nourished, well-developed patient. SKIN: Warm and dry. HEAD: Normocephalic and atraumatic. EYES: No scleral icterus. No injection or drainage. ENT: No nasal drainage noted. Mucous membranes pink. Airway patent. NECK: Supple, trachea midline. No JVD. CARDIOVASCULAR: Regular rate and rhythm without murmurs, gallops, or rubs. RESPIRATORY: Breath sounds equal bilaterally. No accessory muscle use. BREASTS: Bilateral exam showed no masses , no retractions, no nipple discharge. ABDOMEN/GI: Abdomen soft, non-tender, bowel sounds present, no rebound, no guarding Gravid GENITOURINARY: External Genitalia: intact and normal in appearance BUS glands: [wnl] Cervix: posterior Dilatation: 1 Effacement: 50 Station: -3 Presentation: [facility] Membranes: intact Uterine Contractions: rare, patient not feeling FHT's: Category: 1 Baseline: 150s Reactive: yes Variability: mod Decels: no EXTREMITIES: No cyanosis or edema. BACK: Nontender without obvious deformity. No CVA tenderness. NEUROLOGICAL: Awake and alert. Motor and sensory grossly within normal limits. Five out of 5 muscle strength in all muscle groups. Normal speech. Data Data Vital Signs Reviewed: Yes Orders Vital Signs (Adult) .ON ADMISSION (07/30/16 14:39) ^ Labor Status (07/30/16 14:39) ^ Non Stress Test (07/30/16 14:39) ^ Hydration (07/30/16 14:39) MDM Medical Record Reviewed: Yes Narrative Course / MDM IUP at 40.1 wks with cramping and decreased FM --no evidence of labor --cat 1 tracing, reactive FOB desires IOL and very insistent. Pt has f/u appt with OB in am. Advised pt and FOB to discuss scheduling of IOL with OB provider. Diagnosis Diagnosis: Primary Impression: Decreased movement affecting management of in third trimester Additional Impression: 40 weeks gestation of Disposition: 01 DISCHARGE HOME Condition: Stable Amanda Berman MD July 30, 2016 15:23
== END | disposition home or self-care (01) ==
LOC: HOBED 14:20
DX: O36.8130 Decreased fetal movements, third trimester, not applicable or unspecified (principal); Z3A.40 40 weeks gestation of pregnancy
CPT/HCPCS: 99284